=== PATIENT | male | born 1950 | race Caucasian/White ===

== ENCOUNTER 2020-05-07 16:37 | Emergency (ER) | payer MEDICARE ==
[2020-05-07 17:59] VITALS: BP 134/92; PULSE 83
--- NOTE | 2020-05-07 18:15 | EDM.PDOC ---
ED HPI GENERAL MEDICAL PROBLEM - General Chief Complaint: Cardiovascular Problem Stated Complaint: CHEST PAIN Time Seen by Provider: 05/07/20 17:45 Source of Information: Reports: Patient, RN History Limitations: Reports: No Limitations - History of Present Illness INITIAL COMMENTS - FREE TEXT/NARRATIVE: Mr. Michel was referred from the clinic to the ED for left sided chest pain, that radiates down his arm. No jaw pain. No abdominal pain N or V. No SOB. Medical history of Diabetes and increased Cholesterol. He has not taken anything for his chest pain symptoms. He states his pain is worsened by large meals. He had a large dinner last night. Pain scale is 2/10. He appears to be in a good mood and is alert and oriented x3 with no apparent distress. No other symptoms or concerns. Onset: Today (Around noon.) Onset Date: 05/07/20 Onset Time: 12:00 Duration: Hour(s):, Improving Location: Reports: Abdomen (Chest), Upper Extremity, Left Quality: Reports: Ache, Dull Severity: Mild Improves with: Reports: None Worsens with: Reports: Eating Associated Symptoms: Reports: Chest Pain Treatments [employer]ER: Reports: EKG Left Chest Pain Score (Numeric/FACES): 2 - Related Data Allergies Allergy/AdvReac Type Severity Reaction Status Date / Time No Known Allergies Allergy Verified 05/07/20 16:56 Home Meds: Home Meds metFORMIN [Glucophage] 500 mg PO BID 04/19/15 [History] Past Medical History Other HEENT History: glasses Respiratory History: Reports: Other (See Below) Other Respiratory History: chronic cough per pt Other Gastrointestinal History: S/P Ventral Herina Repair Endocrine/Metabolic History: Reports: Diabetes, Type II - Infectious Disease History Infectious Disease History: Reports: Chicken Pox - Past Surgical History Other GI Surgeries/Procedures: hernia repair 2009 Social & Family History - Family History Family Medical History: Noncontributory - Recreational Drug Use Recreational Drug Use: No ED ROS GENERAL - Review of Systems Review Of Systems: See Below Constitutional: Reports: No Symptoms HEENT: Reports: No Symptoms Respiratory: Reports: No Symptoms Cardiovascular: Reports: Chest Pain Endocrine: Reports: High Glucose GI/Abdominal: Reports: Other (mild midline upper abdominal pain) : Reports: No Symptoms Musculoskeletal: Reports: No Symptoms Skin: Reports: No Symptoms Neurological: Reports: No Symptoms Hematologic/Lymphatic: Reports: No Symptoms Immunologic: Reports: No Symptoms ED EXAM, GENERAL - Physical Exam Exam: See Below General Appearance: Alert, No Apparent Distress, Obese Eye Exam: Bilateral Eye: PERRL Ear Exam: Right Ear: Other (Patient says he has intermitient ear pain with sinus drainage. ) Nose: Normal Inspection Throat/Mouth: Normal Lips, Normal Teeth, Normal Oropharynx Head: Atraumatic, Normocephalic Neck: Normal Inspection, Non-Tender Respiratory/Chest: No Respiratory Distress, Lungs Clear, Normal Breath Sounds Cardiovascular: No JVD, No Murmur, No Rub Peripheral Pulses: 2+: Radial (L), Radial (R) GI/Abdominal: Normal Bowel Sounds, Soft, Non-Tender (Male) Exam: Deferred Rectal (Males) Exam: Deferred Extremities: Normal Inspection Neurological: Alert, Oriented, CN II-XII Intact Course - Vital Signs Last Recorded V/S: Last Vital Signs Temp 36.6 C 05/07/20 16:56 Pulse 83 05/07/20 17:58 Resp 20 05/07/20 17:58 BP 134/92 H 05/07/20 17:58 Pulse Ox 97 05/07/20 17:58 - Orders/Labs/Meds Orders: Active Orders 24 hr Category Date Time Status EKG Documentation Completion [RC] ASDIRECTED Care 05/07/20 16:55 Active CXR [Chest 1V Frontal] [CR] Stat Exams 05/07/20 16:56 Taken CORONAVIRUS COVID-19 RAPID [MOLEC] Stat Lab 05/07/20 17:36 Ordered Labs: Laboratory Tests 05/07/20 05/07/20 05/07/20 Range/Units 16:54 16:55 17:18 WBC 8.4 (4.0-11.0) K/uL RBC 4.76 (4.50-6.50) M/uL Hgb 15.5 (13.0-18.0) g/dL Hct 43.0 (40.0-54.0) % MCV 90 (76-96) fL MCH 32.6 H (27.0-32.0) pg MCHC 36.0 H (31.0-35.0) g/dL RDW 12.5 (11.0-16.0) % Plt Count 292 (150-400) K/uL MPV 9.1 (6.0-10.0) fL Neut % (Auto) 55.2 (45.0-70.0) % Lymph % (Auto) 34.2 (20.0-40.0) % Dent % (Auto) 7.8 (3.0-10.0) % Eos % (Auto) 2.4 (1.0-5.0) % Baso % (Auto) 0.4 (0.0-0.5) % Neut # (Auto) 4.66 (2.00-7.50) K/uL Lymph # (Auto) 2.89 (1.50-4.00) K/uL Dent # (Auto) 0.66 (0.20-0.80) K/uL Eos # (Auto) 0.20 (0.04-0.40) K/uL Baso # (Auto) 0.03 (0.02-0.10) K/uL Sodium 140 (136-145) mmol/L Potassium 4.2 (3.5-5.1) mmol/L Chloride 104 (98-107) mmol/L Carbon Dioxide 22.9 (21.0-32.0) mmol/L Anion Gap 17.3 H (5.0-15.0) mmol/L BUN 18 (8-26) mg/dL Creatinine 1.17 (0.70-1.30) mg/dL Est Cr Clr Drug Dosing 63.26 mL/min Estimated GFR (MDRD) > 60 (>60) MLS/MIN BUN/Creatinine Ratio 15.4 (6-25) Glucose 180 H (74-100) mg/dL Calcium 9.2 (8.5-10.1) mg/dL Total Bilirubin 0.3 D (0.0-1.0) mg/dL AST 21 (15-37) U/L ALT 34 (12-78) U/L Alkaline Phosphatase 79 (46-116) U/L Troponin I < 0.017 (0.000-0.060) ng/mL Total Protein 7.7 (6.4-8.2) g/dL Albumin 4.2 (3.4-5.0) g/dL Globulin 3.5 (2.2-4.2) g/dL Albumin/Globulin Ratio 1.2 (0.8-2.0) Amylase (25-115) U/L Lipase 100 (73-393) U/L 05/07/20 Range/Units 17:19 WBC (4.0-11.0) K/uL RBC (4.50-6.50) M/uL Hgb (13.0-18.0) g/dL Hct (40.0-54.0) % MCV (76-96) fL MCH (27.0-32.0) pg MCHC (31.0-35.0) g/dL RDW (11.0-16.0) % Plt Count (150-400) K/uL MPV (6.0-10.0) fL Neut % (Auto) (45.0-70.0) % Lymph % (Auto) (20.0-40.0) % Dent % (Auto) (3.0-10.0) % Eos % (Auto) (1.0-5.0) % Baso % (Auto) (0.0-0.5) % Neut # (Auto) (2.00-7.50) K/uL Lymph # (Auto) (1.50-4.00) K/uL Dent # (Auto) (0.20-0.80) K/uL Eos # (Auto) (0.04-0.40) K/uL Baso # (Auto) (0.02-0.10) K/uL Sodium (136-145) mmol/L Potassium (3.5-5.1) mmol/L Chloride (98-107) mmol/L Carbon Dioxide (21.0-32.0) mmol/L Anion Gap (5.0-15.0) mmol/L BUN (8-26) mg/dL Creatinine (0.70-1.30) mg/dL Est Cr Clr Drug Dosing mL/min Estimated GFR (MDRD) (>60) MLS/MIN BUN/Creatinine Ratio (6-25) Glucose (74-100) mg/dL Calcium (8.5-10.1) mg/dL Total Bilirubin (0.0-1.0) mg/dL AST (15-37) U/L ALT (12-78) U/L Alkaline Phosphatase (46-116) U/L Troponin I (0.000-0.060) ng/mL Total Protein (6.4-8.2) g/dL Albumin (3.4-5.0) g/dL Globulin (2.2-4.2) g/dL Albumin/Globulin Ratio (0.8-2.0) Amylase 33 (25-115) U/L Lipase (73-393) U/L Departure - Departure Time of Disposition: 18:30 Disposition: Home, Self-Care 01 Condition: Good Clinical Impression: Chest pain Qualifiers: Chest pain type: unspecified Qualified Code(s): R07.9 - Chest pain, unspecified Instructions: Nonspecific Chest Pain, Adult Referrals: PCP,None [Primary Care Provider] - Additional Instructions: 1)FU with PCP or ED for new or worsening symptoms. 2)Continue care and management with PCP for Diabetes. Care Plan Goals: Continue all home medications. Sepsis Event Note (ED) - Evaluation Sepsis Screening Result: No Definite Risk - Focused Exam Vital Signs: Vital Signs Temp Pulse Resp BP Pulse Ox 05/07/20 17:58 83 20 134/92 H 97 05/07/20 17:19 118/85 05/07/20 17:04 78 19 129/90 96 05/07/20 16:56 36.6 C 83 18 158/91 H 97 - Problem List & Annotations (1) Diabetes SNOMED Code(s): 98943921 Code(s): E11.9 - TYPE 2 DIABETES MELLITUS WITHOUT COMPLICATIONS Status: Acute Current Visit: No Qualifiers: Diabetes mellitus type: type 2 Diabetes mellitus complication detail: with other circulatory complications (2) Chest pain SNOMED Code(s): 87659281 Code(s): R07.9 - CHEST PAIN, UNSPECIFIED Status: Acute Priority: Low Current Visit: Yes Qualifiers: Chest pain type: unspecified Qualified Code(s): R07.9 - Chest pain, unspecified - My Orders Last 24 Hours: My Active Orders 05/07/20 16:55 EKG Documentation Completion [RC] ASDIRECTED 05/07/20 16:56 CXR [Chest 1V Frontal] [CR] Stat 05/07/20 17:36 CORONAVIRUS COVID-19 RAPID [MOLEC] Stat - Assessment/Plan Last 24 Hours: My Active Orders 05/07/20 16:55 EKG Documentation Completion [RC] ASDIRECTED 05/07/20 16:56 CXR [Chest 1V Frontal] [CR] Stat 05/07/20 17:36 CORONAVIRUS COVID-19 RAPID [MOLEC] Stat
--- NOTE | 2020-05-08 08:17 | CR ---
Date of Service: 05/07/20 Clinical Data: Chest pain. AP CHEST: Comparison is made to a prior exam dated 11/21/15. The heart size is normal. The lungs are clear. No pneumothorax. No pleural effusions. No evidence of acute intrathoracic disease. [id number] [facility]
== END 2020-05-07 18:26 | disposition home or self-care (01) ==
LOC: LB.ED 16:37
DX: R07.9 Chest pain, unspecified (principal); E11.9 Type 2 diabetes mellitus without complications; Z79.84 Long term (current) use of oral hypoglycemic drugs
CPT/HCPCS: 36415; 71045; 80053; 82150; 83690; 84484; 85025; 93005; 99285; U0002; 99283

== ENCOUNTER 2021-03-16 19:39 | Observation (INO) | payer MEDICARE ==
[2021-03-16] MEDS ORDERED: Sodium Chloride 0.9% 10 ML Syringe FLUSH PRN (19:47)
--- NOTE | 2021-03-16 19:55 | EDM.PDOC ---
ED HPI GENERAL MEDICAL PROBLEM - General Chief Complaint: Neuro Symptoms/Deficits Stated Complaint: CONFUSED Time Seen by Provider: 03/16/21 19:40 Source of Information: Reports: Patient History Limitations: Reports: No Limitations - History of Present Illness INITIAL COMMENTS - FREE TEXT/NARRATIVE: patient presented to the ER with a c/o speech problems. started last night and has progressively got worse throughout the day. no weakness or numbness. no vision problems. h/o HTN, DM and dyslipidemia. no h/o stroke in the past. no fever or chills. no CP or SOB. no palpitations. walking fine. Patient reports he was having problems with expressing his words. - Related Data Allergies Allergy/AdvReac Type Severity Reaction Status Date / Time No Known Allergies Allergy Verified 03/16/21 20:17 Home Meds: Home Meds RX: metFORMIN [Glucophage] 500 mg PO BID 04/19/15 [History] RX: Simvastatin 10 mg PO QAM 03/16/21 [History] Past Medical History Other HEENT History: glasses Respiratory History: Reports: Other (See Below) Other Respiratory History: chronic cough per pt Other Gastrointestinal History: S/P Ventral Herina Repair Endocrine/Metabolic History: Reports: Diabetes, Type II - Infectious Disease History Infectious Disease History: Reports: Chicken Pox - Past Surgical History Other GI Surgeries/Procedures: hernia repair 2008 Social & Family History - Family History Family Medical History: No Pertinent Family History ED ROS GENERAL - Review of Systems Review Of Systems: See Below Constitutional: Reports: No Symptoms HEENT: Reports: No Symptoms Respiratory: Reports: No Symptoms Cardiovascular: Reports: No Symptoms GI/Abdominal: Reports: No Symptoms Musculoskeletal: Reports: No Symptoms Skin: Reports: No Symptoms Neurological: Reports: Trouble Speaking Psychiatric: Reports: No Symptoms ED EXAM, NEURO - Physical Exam Exam: See Below Exam Limited By: No Limitations General Appearance: Alert, WD/WN, No Apparent Distress Eye Exam: Bilateral Eye: EOMI, PERRL Head Exam: Atraumatic Respiratory/Chest: No Respiratory Distress Cardiovascular: Normal Peripheral Pulses, Regular Rate, Rhythm GI/Abdominal: Normal Bowel Sounds Neurological: Alert, Normal Mood/Affect, Normal Gait, Normal Reflexes, No Motor/Sensory Deficits, Oriented x 3 Extremities: Normal Inspection, Normal Range of Motion, Non-Tender #1 Interpretation EKG Date: 03/16/21 Rhythm: NSR [place]: Normal P-Wave: Present QRS: Normal ST-T: Normal QT: Normal Comparison: No Change EKG Interpretation Comments: RBBB and left fascicular block - no changes from before Course - Vital Signs Last Recorded V/S: Last Vital Signs Temp 36.4 C 03/16/21 20:28 Pulse 74 03/16/21 21:34 Resp 16 03/16/21 20:28 BP 149/96 H 03/16/21 21:34 Pulse Ox 98 03/16/21 21:34 - Orders/Labs/Meds Orders: Active Orders 24 hr Category Date Time Status Ang Head w Cont [MR] Stat Exams 03/16/21 20:49 Ordered Ang Neck w Cont [MR] Stat Exams 03/16/21 20:49 Ordered Head wo Cont [CT] Stat Exams 03/16/21 19:47 Taken CORONAVIRUS COVID-19 MATTHEW [MOLEC] Routine Lab 03/16/21 20:44 Received CORONAVIRUS COVID-19 RAPID [MOLEC] Routine Lab 03/16/21 20:29 Ordered Sodium Chloride 0.9% [Normal Saline] 1,000 ml Med 03/16/21 21:30 Ordered IV ASDIRECTED Sodium Chloride 0.9% [Saline Flush] Med 03/16/21 19:47 Active 10 ml FLUSH ASDIRECTED PRN Saline Lock Insert [OM.PC] Routine Oth 03/16/21 19:47 Ordered Medication Orders Sodium Chloride (Normal Saline) 1,000 mls @ 999 mls/hr IV ASDIRECTED YULISSA Last Admin: 03/16/21 21:32 Dose: 999 mls/hr Documented by: CONOR Sodium Chloride (Sodium Chloride 0.9% 10 Ml Syringe) 10 ml FLUSH ASDIRECTED PRN PRN Reason: Keep Vein Open Labs: Laboratory Tests 03/16/21 03/16/21 03/16/21 Range/Units 20:01 20:20 20:20 WBC Cancelled 8.8 RBC Cancelled 4.48 L Hgb Cancelled 14.5 Hct Cancelled 40.3 MCV Cancelled 90 MCH Cancelled 32.4 H MCHC Cancelled 36.0 H RDW Cancelled 12.3 Plt Count Cancelled 280 MPV Cancelled 9.2 PT 10.4 (9.0-11.5) sec INR 1.0 (1.0-3.5) Sodium (136-145) mmol/L Potassium (3.5-5.1) mmol/L Chloride (98-107) mmol/L Carbon Dioxide (21.0-32.0) mmol/L Anion Gap (5.0-15.0) mmol/L BUN (8-26) mg/dL Creatinine (0.70-1.30) mg/dL Est Cr Clr Drug Dosing mL/min Estimated GFR (MDRD) (>60) MLS/MIN BUN/Creatinine Ratio (6-25) Glucose (74-100) mg/dL Calcium (8.5-10.1) mg/dL Troponin I (0.000-0.060) ng/mL 03/16/21 Range/Units 20:20 WBC RBC Hgb Hct MCV MCH MCHC RDW Plt Count MPV PT (9.0-11.5) sec INR (1.0-3.5) Sodium 136 (136-145) mmol/L Potassium 4.2 (3.5-5.1) mmol/L Chloride 104 (98-107) mmol/L Carbon Dioxide 20.1 L (21.0-32.0) mmol/L Anion Gap 16.1 H (5.0-15.0) mmol/L BUN 20 (8-26) mg/dL Creatinine 1.12 (0.70-1.30) mg/dL Est Cr Clr Drug Dosing 69.29 mL/min Estimated GFR (MDRD) > 60 (>60) MLS/MIN BUN/Creatinine Ratio 17.9 (6-25) Glucose 226 H (74-100) mg/dL Calcium 9.4 (8.5-10.1) mg/dL Troponin I < 0.017 (0.000-0.060) ng/mL Meds: Medications Generic Name Dose Route Start Last Admin Trade Name Freq PRN Reason Stop Dose Admin Sodium Chloride 1,000 mls @ 999 mls/hr 03/16/21 21:30 03/16/21 21:32 Normal Saline IV 999 mls/hr ASDIRECTED YULISSA Administration Sodium Chloride 10 ml 03/16/21 19:47 Sodium Chloride 0.9% 10 Ml Syringe FLUSH ASDIRECTED PRN Keep Vein Open Discontinued Medications Generic Name Dose Route Start Last Admin Trade Name Freq PRN Reason Stop Dose Admin Clopidogrel Bisulfate 300 mg 03/16/21 20:54 03/16/21 21:16 Clopidogrel 75 Mg Tab PO 03/16/21 20:55 300 mg ONETIME ONE Administration Clopidogrel Bisulfate Confirm 03/16/21 21:19 03/16/21 21:16 Clopidogrel 75 Mg Tab Administered 03/16/21 21:20 Not Given Dose 75 mg .ROUTE .STK-MED ONE Clopidogrel Bisulfate Confirm 03/16/21 21:20 03/16/21 21:16 Clopidogrel 75 Mg Tab Administered 03/16/21 21:21 Not Given Dose 225 mg .ROUTE .STK-MED ONE - Re-Assessments/Exams Free Text/Narrative Re-Assessment/Exam: vitals WNL labs - no leukocytosis or labs abnormalities. 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 contacted stroke neurologist in [place] - no indications for tPA or thrombectomy given outside the window. Recommended Plavix 300mg then 75mg for 21 days. Also resume ASA 81mg po daily then increase to 300mh PO after 21 days. Also recommended MRI or CTA Head and Neck- whatever available - unfortunately - none of those services are available here - and [facility] unable to accept the patient - given no bed availability - also contacted [facility] - no bed available. But recommended to admit the patient overnight for observation and try again tomorrow since they will have some discharges. Discussed the findings with the patient, his sister and his daughter - who are all in agree with the plan. Patient remained stable - he actually improved slightly compared to before, but still have some troubles findings some words. Departure - Departure Time of Disposition: 21:52 Disposition: Refer to Observation Condition: Fair Clinical Impression: Broca's aphasia Cerebrovascular accident (CVA) Qualifiers: CVA mechanism: unspecified Qualified Code(s): I63.9 - Cerebral infarction, unspecified - Discharge Information *PRESCRIPTION DRUG MONITORING PROGRAM REVIEWED*: Not Applicable *COPY OF PRESCRIPTION DRUG MONITORING REPORT IN PATIENT DONNELL: Not Applicable Instructions: Transient Ischemic Attack, [id number] Referrals: PCP,None [Primary Care Provider] - Forms: ED Department Discharge Sepsis Event Note (ED) - Focused Exam Vital Signs: Vital Signs Temp Pulse Resp BP Pulse Ox 03/16/21 21:34 74 149/96 H 98 03/16/21 20:28 36.4 C 76 16 156/94 H 98 03/16/21 20:20 131/75 98 - Problem List & Annotations (1) Broca's aphasia SNOMED Code(s): 293448577 Code(s): R47.01 - APHASIA Status: Acute Priority: Medium Current Visit: Yes (2) Cerebrovascular accident (CVA) SNOMED Code(s): 201358108 Code(s): I63.9 - CEREBRAL INFARCTION, UNSPECIFIED Status: Acute Priority: Medium Current Visit: Yes Qualifiers: CVA mechanism: unspecified Qualified Code(s): I63.9 - Cerebral infarction, unspecified - Problem List Review Problem List Initiated/Reviewed/Updated: Yes - My Orders Last 24 Hours: My Active Orders 03/16/21 19:47 Head wo Cont [CT] Stat Sodium Chloride 0.9% [Saline Flush] 10 ml FLUSH ASDIRECTED PRN Saline Lock Insert [OM.PC] Routine 03/16/21 20:29 CORONAVIRUS COVID-19 RAPID [MOLEC] Routine 03/16/21 20:44 CORONAVIRUS COVID-19 MATTHEW [MOLEC] Routine 03/16/21 20:49 Ang Head w Cont [MR] Stat Ang Neck w Cont [MR] Stat 03/16/21 21:30 Sodium Chloride 0.9% [Normal Saline] 1,000 ml IV ASDIRECTED - Assessment/Plan Last 24 Hours: My Active Orders 03/16/21 19:47 Head wo Cont [CT] Stat Sodium Chloride 0.9% [Saline Flush] 10 ml FLUSH ASDIRECTED PRN Saline Lock Insert [OM.PC] Routine 03/16/21 20:29 CORONAVIRUS COVID-19 RAPID [MOLEC] Routine 03/16/21 20:44 CORONAVIRUS COVID-19 MATTHEW [MOLEC] Routine 03/16/21 20:49 Ang Head w Cont [MR] Stat Ang Neck w Cont [MR] Stat 03/16/21 21:30 Sodium Chloride 0.9% [Normal Saline] 1,000 ml IV ASDIRECTED Plan: - resume home meds - Plavix 300mg today then 75mg daily for 21 days. - ASA 81mg - simvastatin - Tele bed - heart healthy diet - ECHO as outpatient - MRI and CT angio - not available but will arrange for OSH facility
[2021-03-16] MEDS ORDERED: Clopidogrel 75 MG Tab PO ONE (20:54)
[2021-03-16] MEDS ORDERED: Clopidogrel 75 MG Tab ONE ×2 (21:19→21:20)
[2021-03-16] MEDS ORDERED: Sodium Chloride 0.9% 1,000 ML IV SCH (21:30)
[2021-03-17] MEDS ORDERED: metFORMIN 500 MG Tab PO SCH ×2 (08:00→20:00)
--- NOTE | 2021-03-17 08:42 | CT ---
Date of Service: 03/16/21 Clinical Data: speech problem - expressive aphasia UNENHANCED BRAIN CT: Multislice acquisition through the brain without IV contrast was performed. Comparison is made to a prior exam dated 11/21/15. There is a small area of encephalomalacia in the right parietal region consistent with a prior infarct. There is also a focal lucency in the left thalamus consistent with an old lacunar infarct. No masses. No intracranial hemorrhage. No evidence of acute or subacute infarct. No osseous abnormalities. IMPRESSION: No acute intracranial abnormalities. [id number] [facility]
[2021-03-17] MEDS: Aspirin 81 MG Tab.Chew PO SCH (08:55)
[2021-03-17] MEDS: Clopidogrel 75 MG Tab PO SCH (08:56)
[2021-03-17] MEDS ORDERED: metFORMIN 500 MG Tab PO ONE (11:43)
[2021-03-17] MEDS ORDERED: Iopamidol 755 Mg/ML 100 ML Bottle IV PRN (13:16)
[2021-03-17] MEDS ORDERED: Sodium Chloride 0.9% 50 ML SDV FLUSH SCH (13:30)
[2021-03-17] MEDS ORDERED: glipiZIDE 5 MG Tab ONE (18:18)
[2021-03-17] MEDS: metFORMIN 500 MG Tab PO SCH (18:22)
[2021-03-17] MEDS: glipiZIDE 5 MG Tab PO SCH (18:23)
--- NOTE | 2021-03-17 18:33 | CT ---
DATE OF SERVICE: 03/17/21 CLINICAL DATA: DYSARTHRIA NECK CTA: Routine protocol with IV contrast was performed. Multiplanar images are reviewed. LEFT CAROTID SYSTEM: There is atherosclerotic plaquing in the carotid bulb and proximal ICA. No significant stenosis or vessel occlusion. LEFT CAROTID SYSTEM: There is calcified plaque in the carotid bulb and proximal ECA. No significant stenosis or vessel occlusion. VERTEBRAL SYSTEM: Left vertebral is dominant. No significant stenosis or vessel occlusion. [id number] [facility]
--- NOTE | 2021-03-17 18:36 | CT ---
DATE OF SERVICE: 03/17/21 CLINICAL DATA: dysarthria HEAD CTA: Routine protocol with IV contrast was performed. Multiplanar images are reviewed. INTRACRANIAL ICA'S: No significant stenosis or vessel occlusion. ANTERIOR CEREBRAL ARTERIES: No significant stenosis or vessel occlusion. No aneurysm. MIDDLE CEREBRAL ARTERIES: No significant stenosis or vessel occlusion. No aneurysm. POSTERIOR CEREBRAL ARTERIES: No significant stenosis or vessel occlusion. No aneurysm. BASILAR ARTERY: No significant stenosis or vessel occlusion. No aneurysm. [id number] [facility]
--- NOTE | 2021-03-17 18:54 | PCM.HP.2 ---
H&P History of Present Illness - General Date of Service: 03/17/21 Admit Problem/Dx: Admission Diagnosis/Problem Admission Diagnosis/Problem CVA, Cerebrovascular accident Source of Information: Patient History Limitations: Reports: No Limitations - History of Present Illness Initial Comments - Free Text/Narative: patient was admitted to the floor from the ER due to concerns for a stroke. He presented to the ER yesterday with a 24 hr onset of speech problems - difficulty speaking. No weakness or numbness. no facial droop. no problems with walking, or dizziness. 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 No acute stroke or bleeding. Consulted with neurology at [facility] ( [facility] ) - no bed is available - couldn't accept the patient - but the neurologist recommended to admit the patient to the floor for monitoring and to start plavix. Also to perform further stroke workup. h/o T2DM, obesity and HTN. Also h/o dyslipidemia. Patient lives home alone - most family is out of town. In the ER, he received plavix 300mg. Already on ASA 81mg. - Related Data Allergies/Adverse Reactions: Allergies Allergy/AdvReac Type Severity Reaction Status Date / Time No Known Allergies Allergy Verified 03/16/21 20:17 Home Medications: Home Meds metFORMIN [Glucophage] 1,000 mg PO BID 04/19/15 [History] Simvastatin 10 mg PO QAM 03/16/21 [History] Past Medical History HEENT History: Reports: Impaired Vision Other HEENT History: glasses Cardiovascular History: Reports: High Cholesterol Respiratory History: Reports: Other (See Below) Other Respiratory History: chronic cough per pt Gastrointestinal History: Reports: Other (See Below) Other Gastrointestinal History: S/P Ventral Herina Repair Endocrine/Metabolic History: Reports: Diabetes, Type II - Infectious Disease History Infectious Disease History: Reports: Chicken Pox - Past Surgical History GI Surgical History: Reports: Other (See Below) Other GI Surgeries/Procedures: hernia repair 2008 Social & Family History - Family History Family Medical History: No Pertinent Family History - Tobacco Use Tobacco Use Status *Q: Never Tobacco User H&P Review of Systems - Review of Systems: Review Of Systems: See Below General: Reports: No Symptoms HEENT: Reports: No Symptoms Pulmonary: Reports: No Symptoms Cardiovascular: Reports: No Symptoms Gastrointestinal: Reports: No Symptoms Neurological: Reports: No Symptoms Exam - Exam Exam: See Below - Vital Signs Vital Signs: Last Vital Signs Temp 36.7 C 03/17/21 12:00 Pulse 69 03/17/21 12:00 Resp 15 03/17/21 12:00 BP 130/86 03/17/21 12:00 Pulse Ox 99 03/17/21 12:00 Weight: 117.8 kg - Exam General: Alert, Oriented, Cooperative HEENT: PERRLA, Conjunctiva Clear, EOMI Lungs: Clear to Auscultation Cardiovascular: Regular Rate, Regular Rhythm GI/Abdominal Exam: Normal Bowel Sounds, Soft, Non-Tender Back Exam: Full Range of Motion Extremities: Normal Inspection, Normal Range of Motion Neurological: Cranial Nerves Intact, Reflexes Equal Bilateral, Strength Equal Bilateral, Normal Gait, Normal Speech (except for missing few words and sporadic words rumbling), Sensation Intact. No: Focal Deficit Neuro Extensive - Mental Status: Alert, Oriented x3, Normal Mood/Affect, Normal Cognition, Memory Intact Neuro Extensive - Motor, Sensory, Reflexes: Normal Gait Psychiatric: Alert, Normal Affect, Normal Mood - Patient Data Lab Results Last 24 hrs: Laboratory Results - last 24 hr 03/16/21 03/16/21 03/16/21 Range/Units 20:01 20:20 20:20 WBC Cancelled 8.8 RBC Cancelled 4.48 L Hgb Cancelled 14.5 Hct Cancelled 40.3 MCV Cancelled 90 MCH Cancelled 32.4 H MCHC Cancelled 36.0 H RDW Cancelled 12.3 Plt Count Cancelled 280 MPV Cancelled 9.2 PT 10.4 (9.0-11.5) sec INR 1.0 (1.0-3.5) Sodium (136-145) mmol/L Potassium (3.5-5.1) mmol/L Chloride (98-107) mmol/L Carbon Dioxide (21.0-32.0) mmol/L Anion Gap (5.0-15.0) mmol/L BUN (8-26) mg/dL Creatinine (0.70-1.30) mg/dL Est Cr Clr Drug Dosing mL/min Estimated GFR (MDRD) (>60) MLS/MIN BUN/Creatinine Ratio (6-25) Glucose (74-100) mg/dL POC Glucose (74-110) mg/dL Calcium (8.5-10.1) mg/dL Troponin I (0.000-0.060) ng/mL SARS-CoV-2 RNA (MATTHEW) (NEGATIVE) 03/16/21 03/16/21 03/17/21 Range/Units 20:20 20:44 18:42 WBC RBC Hgb Hct MCV MCH MCHC RDW Plt Count MPV PT (9.0-11.5) sec INR (1.0-3.5) Sodium 136 (136-145) mmol/L Potassium 4.2 (3.5-5.1) mmol/L Chloride 104 (98-107) mmol/L Carbon Dioxide 20.1 L (21.0-32.0) mmol/L Anion Gap 16.1 H (5.0-15.0) mmol/L BUN 20 (8-26) mg/dL Creatinine 1.12 (0.70-1.30) mg/dL Est Cr Clr Drug Dosing 69.29 mL/min Estimated GFR (MDRD) > 60 (>60) MLS/MIN BUN/Creatinine Ratio 17.9 (6-25) Glucose 226 H (74-100) mg/dL POC Glucose 261 H (74-110) mg/dL Calcium 9.4 (8.5-10.1) mg/dL Troponin I < 0.017 (0.000-0.060) ng/mL SARS-CoV-2 RNA (MATTHEW) Negative (NEGATIVE) Result Diagrams: 03/16/21 20:20 03/16/21 20:20 Sepsis Event Note - Focused Exam Vital Signs: Vital Signs Temp Pulse Resp BP Pulse Ox 03/17/21 12:00 36.7 C 69 15 130/86 99 03/17/21 08:00 36.6 C 67 15 137/85 100 - Problem List (1) Broca's aphasia SNOMED Code(s): 541721560 ICD Code: R47.01 - APHASIA Status: Acute Priority: Medium Current Visit: Yes (2) Cerebrovascular accident (CVA) SNOMED Code(s): 337348778 ICD Code: I63.9 - CEREBRAL INFARCTION, UNSPECIFIED Status: Acute Priority: Medium Current Visit: Yes Qualifiers: CVA mechanism: unspecified Qualified Code(s): I63.9 - Cerebral infarction, unspecified Problem List Initiated/Reviewed/Updated: Yes Orders Last 24hrs: Active Orders 24 hr Category Date Time Status Patient Status [ADT] Routine ADT 03/16/21 22:06 Active EKG Documentation Completion [RC] ASDIRECTED Care 03/17/21 16:05 Active Oxygen Therapy [RC] PRN Care 03/16/21 22:06 Active Vital Signs [RC] Q4H Care 03/16/21 22:06 Active CORONAVIRUS COVID-19 RAPID [MOLEC] Routine Lab 03/16/21 20:43 Ordered CULTURE MRSA SURVEY [] Routine Lab 03/17/21 04:51 Received Aspirin Med 03/17/21 08:00 Active 81 mg PO DAILY Clopidogrel [Plavix] Med 03/17/21 08:00 Active 75 mg PO DAILY Iopamidol [Isovue-370 (76%)] Med 03/17/21 13:16 Active 100 ml IV . DIRECTED PRN Simvastatin [Zocor] Med 03/17/21 20:00 Active 40 mg PO BEDTIME Sodium Chloride 0.9% [Normal Saline] Med 03/17/21 13:30 Active 50 ml FLUSH ONETIME Sodium Chloride 0.9% [Normal Saline] 1,000 ml Med 03/16/21 21:30 Active IV ASDIRECTED Sodium Chloride 0.9% [Saline Flush] Med 03/16/21 19:47 Active 10 ml FLUSH ASDIRECTED PRN glipiZIDE [Glucotrol] Med 03/17/21 18:15 Active 10 mg PO BIDMEALS metFORMIN [Glucophage] Med 03/17/21 18:15 Active 1,000 mg PO BIDMEALS Saline Lock Insert [OM.PC] Routine Oth 03/16/21 19:47 Ordered Medication Orders Aspirin (Aspirin 81 Mg Tab.Chew) 81 mg PO DAILY [facility] Last Admin: 03/17/21 08:55 Dose: 81 mg Documented by: KYA Clopidogrel Bisulfate (Clopidogrel 75 Mg Tab) 75 mg PO DAILY [facility] Last Admin: 03/17/21 08:56 Dose: 75 mg Documented by: KYA Glipizide (Glipizide 5 Mg Tab) 10 mg PO BIDMEALS [facility] Last Admin: 03/17/21 18:23 Dose: 10 mg Documented by: SHANTELLEMAMY Sodium Chloride (Normal Saline) 1,000 mls @ 999 mls/hr IV ASDIRECTED [facility] Last Admin: 03/16/21 21:32 Dose: 999 mls/hr Documented by: CONOR Iopamidol (Iopamidol 755 Mg/Ml 100 Ml Bottle) 100 ml IV . DIRECTED PRN PRN Reason: RADIOLOGY EXAM Stop: 03/18/21 13:17 Last Admin: 03/17/21 13:44 Dose: 100 ml Documented by: MIAHCailin Metformin HCl (Metformin 500 Mg Tab) 1,000 mg PO BIDMEALS [facility] Last Admin: 03/17/21 18:22 Dose: 1,000 mg Documented by: RIC Simvastatin (Simvastatin 40 Mg Tab) 40 mg PO BEDTIME [facility] Sodium Chloride (Sodium Chloride 0.9% 10 Ml Syringe) 10 ml FLUSH ASDIRECTED PRN PRN Reason: Keep Vein Open Sodium Chloride (Sodium Chloride 0.9% 50 Ml Sdv) 50 ml FLUSH ONETIME [facility] Last Admin: 03/17/21 13:44 Dose: 50 ml Documented by: MIAHCailin Assessment/Plan Comment:: - possible CVA vs TIA: significantly improved compared to yesterday but not back to normal yet. Continue plavix 75mg daily and ASA 81mg. - Will obtain a CT angio head and neck today - frequent neuro check - T2DM - resume home Meds today - continue simvastatin - meanwhile, will wait to hear back from [facility] regarding bed availability - patient still needs to have ECHO, carotids US and possibly MRI head+neck w contrast. - Mortality Measure Prognosis:: Good
[2021-03-17] MEDS ORDERED: Simvastatin 40 MG Tab PO SCH (20:00)
[2021-03-18 04:00] VITALS: PULSE 61
[2021-03-18] MEDS: glipiZIDE 5 MG Tab PO SCH (07:34)
[2021-03-18] MEDS: Aspirin 81 MG Tab.Chew PO SCH (07:34)
[2021-03-18] MEDS: metFORMIN 500 MG Tab PO SCH (07:35)
[2021-03-18] MEDS: Clopidogrel 75 MG Tab PO SCH (07:36)
[2021-03-18 07:45] VITALS: BP 142/98
--- NOTE | 2021-03-18 09:52 | PCM.DCSUM1 ---
Discharge Summary - Hospital Course Brief History: patient was admitted to the floor from the ER on 03/16 due to concerns for a stroke. He presented to the ER yesterday with a 24 hr onset of speech problems - difficulty speaking/finding some words. No weakness or numbness. no facial droop. no problems with walking, or dizziness. 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 No acute stroke or bleeding. Consulted with neurology at [facility] ( [facility] ) - no bed is available - couldn't accept the patient - but the neurologist recommended to admit the patient to the floor for monitoring and to start plavix. Also to perform further stroke workup. h/o T2DM, obesity and HTN. Also h/o dyslipidemia. Diagnosis: Stroke: Yes Modified Jp Scale: No Signif.Disability Despite Sympt.Able to Carry Out Usual Act./Duties () Modified Jp Scale Score: 1 - Discharge Data Discharge Date: 03/18/21 Discharge Disposition: Home, Self-Care 01 Condition: Fair - Referral to Home Health Primary Care Physician: PCP None - Discharge Diagnosis/Problem(s) (1) Broca's aphasia SNOMED Code(s): 716758297 ICD Code: R47.01 - APHASIA Status: Acute Priority: Medium Current Visit: Yes (2) Cerebrovascular accident (CVA) SNOMED Code(s): 599965453 ICD Code: I63.9 - CEREBRAL INFARCTION, UNSPECIFIED Status: Acute Priority: Medium Current Visit: Yes Qualifiers: CVA mechanism: unspecified Qualified Code(s): I63.9 - Cerebral infarction, unspecified - Patient Summary/Data Hospital Course: patient was placed in observation on tele. was started on plavix 300mg on day1 then 75mg daily. Also ASA 81mg daily and high dose simvastatin. CT angio H n N were ordered based on neurology recommendations - this showed mild narrowing in carotids but didn't shows any severe obstruction or a clot. Patient speech status has cleared up while in house. No more neuro deficit. Ambulating without problems. Tolerating PO intake. 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) - Discharge Plan *PRESCRIPTION DRUG MONITORING PROGRAM REVIEWED*: Not Applicable *COPY OF PRESCRIPTION DRUG MONITORING REPORT IN PATIENT DONNELL: Not Applicable Home Medications: Home Meds metFORMIN [Glucophage] 1,000 mg PO BID 04/19/15 [History] Simvastatin 10 mg PO QAM 03/16/21 [History] Patient Handouts: Transient Ischemic Attack, [id number] Forms: ED Department Discharge Referrals: PCP,None [Primary Care Provider] - - Discharge Summary/Plan Comment DC Time >30 min.: Yes Total # of Minutes for Discharge Time: 35 Discharge Summary/Plan Comment: - will plan on MRI head and Neck w contrast as outpatient - also might needs an ECHO heart and US carotids as an outpatient - but will leave this to his PCP discretion for how and when. 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 - Patient Data Vitals - Most Recent: Last Vital Signs Temp 36.4 C 03/18/21 07:41 Pulse 61 03/18/21 07:41 Resp 15 03/18/21 07:41 BP 142/98 H 03/18/21 07:41 Pulse Ox 100 03/18/21 07:41 Weight - Most Recent: 117.8 kg I&O - Last 24 hours: Intake & Output 03/17/21 03/18/21 03/18/21 22:59 06:59 14:59 Intake Total 150 Balance 150 Lab Results - Last 24 hrs: Laboratory Results - last 24 hr 03/17/21 03/18/21 Range/Units 18:42 07:24 POC Glucose 261 H 224 H (74-110) mg/dL Med Orders - Current: Current Medications Aspirin (Aspirin 81 Mg Tab.Chew) 81 mg PO DAILY [facility] Last Admin: 03/18/21 07:34 Dose: 81 mg Documented by: Clopidogrel Bisulfate (Clopidogrel 75 Mg Tab) 75 mg PO DAILY [facility] Last Admin: 03/18/21 07:36 Dose: 75 mg Documented by: Glipizide (Glipizide 5 Mg Tab) 10 mg PO BIDMEALS [facility] Last Admin: 03/18/21 07:34 Dose: 10 mg Documented by: Sodium Chloride (Normal Saline) 1,000 mls @ 999 mls/hr IV ASDIRECTED [facility] Last Admin: 03/16/21 21:32 Dose: 999 mls/hr Documented by: Iopamidol (Iopamidol 755 Mg/Ml 100 Ml Bottle) 100 ml IV . DIRECTED PRN PRN Reason: RADIOLOGY EXAM Stop: 03/18/21 13:17 Last Admin: 03/17/21 13:44 Dose: 100 ml Documented by: Metformin HCl (Metformin 500 Mg Tab) 1,000 mg PO BIDMEALS [facility] Last Admin: 03/18/21 07:35 Dose: 1,000 mg Documented by: Simvastatin (Simvastatin 40 Mg Tab) 40 mg PO BEDTIME [facility] Last Admin: 03/17/21 21:45 Dose: 40 mg Documented by: Sodium Chloride (Sodium Chloride 0.9% 10 Ml Syringe) 10 ml FLUSH ASDIRECTED PRN PRN Reason: Keep Vein Open Sodium Chloride (Sodium Chloride 0.9% 50 Ml Sdv) 50 ml FLUSH ONETIME [facility] Last Admin: 03/17/21 13:44 Dose: 50 ml Documented by: Discontinued Medications Clopidogrel Bisulfate (Clopidogrel 75 Mg Tab) 300 mg PO ONETIME ONE Stop: 03/16/21 20:55 Last Admin: 03/16/21 21:16 Dose: 300 mg Documented by: Clopidogrel Bisulfate (Clopidogrel 75 Mg Tab) Confirm Administered Dose 75 mg .ROUTE .STK-MED ONE Stop: 03/16/21 21:20 Last Admin: 03/16/21 21:16 Dose: Not Given Documented by: Clopidogrel Bisulfate (Clopidogrel 75 Mg Tab) Confirm Administered Dose 225 mg .ROUTE .STK-MED ONE Stop: 03/16/21 21:21 Last Admin: 03/16/21 21:16 Dose: Not Given Documented by: Glipizide (Glipizide 5 Mg Tab) Confirm Administered Dose 10 mg .ROUTE .STK-MED ONE Stop: 03/17/21 18:19 Last Admin: 03/17/21 18:24 Dose: Not Given Documented by: Metformin HCl (Metformin 500 Mg Tab) 500 mg PO BID [facility] Last Admin: 03/17/21 08:56 Dose: 500 mg Documented by: Metformin HCl (Metformin 500 Mg Tab) 1,000 mg PO BID [facility] Metformin HCl (Metformin 500 Mg Tab) 500 mg PO ONETIME ONE Stop: 03/17/21 11:44 Last Admin: 03/17/21 11:45 Dose: 500 mg Documented by:
== END 2021-03-18 12:45 | disposition home or self-care (01) ==
LOC: LB.ED 19:39 → LB.MS 22:00
PROVIDERS: ADMIT Surgery; ATTEND Surgery
DX: I63.9 Cerebral infarction, unspecified (principal); R47.01 Aphasia; E11.9 Type 2 diabetes mellitus without complications; I10 Essential (primary) hypertension; E66.9 Obesity, unspecified; E78.00 Pure hypercholesterolemia, unspecified; Z20.822 Contact with and (suspected) exposure to COVID-19; Z79.84 Long term (current) use of oral hypoglycemic drugs; Z79.899 Other long term (current) drug therapy
CPT/HCPCS: 36415; 70450; 70460; 70491; 70496; 70498; 80048; 82947; 84484; 85027; 85610; 93005; 99285-25; A9270-GY; G0378; J7030; Q9967; U0002

== ENCOUNTER 2023-06-22 11:55 | Emergency (ER) | payer MEDICARE ==
[2023-06-22 12:52] LABS: BASOPHILS ABSOLUTE AUTO 0.03 K/uL (0.02-0.10); BASOPHILS PERCENT AUTO 0.4 % (0.0-0.5); EOSINOPHILS ABSOLUTE AUTO 0.14 K/uL (0.04-0.40); EOSINOPHILS PERCENT AUTO 1.9 % (1.0-5.0); HEMATOCRIT 42.5 % (40.0-54.0); HEMOGLOBIN 15.1 g/dL (13.0-18.0); LYMPHOCYTES ABSOLUTE AUTO 2.32 K/uL (1.50-4.00); LYMPHOCYTES PERCENT AUTO 31.7 % (20.0-40.0); MEAN CORPUSCULAR HEMOGLOBIN 31.7 pg (27.0-32.0); MEAN CORPUSCULAR HGB CONC 35.5 g/dL (31.0-35.0); MEAN CORPUSCULAR VOLUME 89 fL (76-96); MEAN PLATELET VOLUME 8.9 fL (6.0-10.0); MONOCYTES ABSOLUTE AUTO 0.59 K/uL (0.20-0.80); MONOCYTES PERCENT AUTO 8.1 % (3.0-10.0); NEUTROPHILS ABSOLUTE AUTO 4.23 K/uL (2.00-7.50); NEUTROPHILS PERCENT AUTO 57.9 % (45.0-70.0); PLATELET COUNT,PLT 272 K/uL (150-400); RED BLOOD CELL COUNT 4.77 M/uL (4.50-6.50); RED CELL DISTRIBUTION WIDTH 12.4 % (11.0-16.0); WHITE BLOOD CELL COUNT,WBC 7.3 K/uL (4.0-11.0)
[2023-06-22 13:13] LABS: A/G RATIO 1.1 (0.8-2.0); ALBUMIN 3.8 g/dL (3.4-5.0); ANION GAP 15.1 mmol/L (5.0-15.0); BILIRUBIN TOTAL 0.7 mg/dL (0.0-1.0); CALCIUM 9.5 mg/dL (8.5-10.1); CARBON DIOXIDE,CO2 25.6 mmol/L (21.0-32.0); CREATININE 1.08 mg/dL (0.70-1.30); EST CRCL DRUG DOSING (CG) 65.72 mL/min; POTASSIUM,K 4.7 mmol/L (3.5-5.1); PROTEIN TOTAL,TP 7.3 g/dL (6.4-8.2)
[2023-06-22 13:21] LABS: APPEARANCE,URINE CLEAR (CLEAR); BILIRUBIN,URINE NEGATIVE (NEGATIVE); COLOR,URINE YELLOW; GLUCOSE,URINE NEGATIVE (NEGATIVE); KETONES,URINE NEGATIVE (NEGATIVE); LEUKOCYTE ESTERASE,URINE NEGATIVE (NEGATIVE); NITRITE,URINE NEGATIVE (NEGATIVE); OCCULT BLOOD,URINE NEGATIVE (NEGATIVE); PROTEIN,URINE 100 mg/dL (NEGATIVE)
[2023-06-22 13:30] LABS: RBC,URINE 0-5 /HPF
[2023-06-22 13:31] LABS: SQUAMOUS EPITHELIAL CELLS,UR OCCASIONAL /HPF; WBC,URINE 0-5 /HPF
[2023-06-22 14:57] VITALS: BP 154/98; PULSE 90
== END 2023-06-22 14:14 | disposition home or self-care (01) ==
LOC: LB.ED 11:55
DX: E11.9 Type 2 diabetes mellitus without complications (principal); Z86.73 Personal history of transient ischemic attack (TIA), and cerebral infarction without residual deficits
CPT/HCPCS: 36415; 70450; 80053; 81001; 85025; 99284

== ENCOUNTER 2024-02-28 11:36 | Emergency (ER) | payer MEDICARE ==
[2024-02-28] MEDS ORDERED: Sodium Chloride 0.9% 10 ML Syringe FLUSH PRN (12:11)
[2024-02-28 12:23] LABS: BASOPHILS ABSOLUTE AUTO 0.03 K/uL (0.02-0.10); BASOPHILS PERCENT AUTO 0.4 % (0.0-0.5); EOSINOPHILS ABSOLUTE AUTO 0.11 K/uL (0.04-0.40); EOSINOPHILS PERCENT AUTO 1.3 % (1.0-5.0); HEMATOCRIT 42.1 % (40.0-54.0); LYMPHOCYTES ABSOLUTE AUTO 2.16 K/uL (1.50-4.00); LYMPHOCYTES PERCENT AUTO 26.1 % (20.0-40.0); MEAN CORPUSCULAR HEMOGLOBIN 31.8 pg (27.0-32.0); MEAN CORPUSCULAR HGB CONC 35.6 g/dL (31.0-35.0); MEAN CORPUSCULAR VOLUME 89 fL (76-96); MEAN PLATELET VOLUME 9.2 fL (6.0-10.0); MONOCYTES ABSOLUTE AUTO 0.51 K/uL (0.20-0.80); MONOCYTES PERCENT AUTO 6.2 % (3.0-10.0); NEUTROPHILS ABSOLUTE AUTO 5.48 K/uL (2.00-7.50); PLATELET COUNT,PLT 301 K/uL (150-400); RED BLOOD CELL COUNT 4.71 M/uL (4.50-6.50); RED CELL DISTRIBUTION WIDTH 12.4 % (11.0-16.0); WHITE BLOOD CELL COUNT,WBC 8.3 K/uL (4.0-11.0)
[2024-02-28 12:42] LABS: INR 1.1 (1.0-3.5); PTT,PARTIAL THROMBOPLSTIN TIME 22.5 SECONDS (24.4-33.2)
[2024-02-28 12:46] LABS: A/G RATIO 1.1 (0.8-2.0); ALBUMIN 3.8 g/dL (3.4-5.0); BILIRUBIN TOTAL 0.5 mg/dL (0.0-1.0); BUN/CREATININE RATIO 13.2 (6-25); CARBON DIOXIDE,CO2 22.6 mmol/L (21.0-32.0); CREATININE 1.29 mg/dL (0.70-1.30); EST CRCL DRUG DOSING (CG) 54.23 mL/min; POTASSIUM,K 3.6 mmol/L (3.5-5.1); PROTEIN TOTAL,TP 7.3 g/dL (6.4-8.2); TROPONIN I HIGH SENSITIVITY 60.2 pg/ml (<=60.4)
[2024-02-28] MEDS: Sodium Chloride 0.9% 1,000 ML IV ONE (15:00)
[2024-02-28 22:46] VITALS: BP 150/104; PULSE 82
[2024-02-28] MEDS: Sodium Chloride 0.9% 500 ML IV ONE (22:57)
== END 2024-02-28 15:20 | disposition home or self-care (01) ==
LOC: LB.ED 11:36
DX: G45.9 Transient cerebral ischemic attack, unspecified (principal); E86.0 Dehydration; E78.00 Pure hypercholesterolemia, unspecified; E11.9 Type 2 diabetes mellitus without complications; Z79.899 Other long term (current) drug therapy; Z79.84 Long term (current) use of oral hypoglycemic drugs; Z88.8 Allergy status to other drugs, medicaments and biological substances
CPT/HCPCS: 36415; 70450; 80053; 82947; 84484; 85025; 85610; 85730; 93005; 96360; 96361; 99285; J7030

== ENCOUNTER 2024-12-03 14:40 | Emergency (ER) | payer MEDICARE ==
[2024-12-03 15:14] LABS: BASOPHILS ABSOLUTE AUTO 0.04 K/uL (0.02-0.10); BASOPHILS PERCENT AUTO 0.5 % (0.0-0.5); EOSINOPHILS PERCENT AUTO 2.3 % (1.0-5.0); HEMATOCRIT 42.5 % (40.0-54.0); HEMOGLOBIN 15.3 g/dL (13.0-18.0); LYMPHOCYTES ABSOLUTE AUTO 2.38 K/uL (1.50-4.00); LYMPHOCYTES PERCENT AUTO 27.4 % (20.0-40.0); MEAN CORPUSCULAR HEMOGLOBIN 32.1 pg (27.0-32.0); MEAN CORPUSCULAR VOLUME 89 fL (76-96); MONOCYTES PERCENT AUTO 9.2 % (3.0-10.0); NEUTROPHILS ABSOLUTE AUTO 5.28 K/uL (2.00-7.50); NEUTROPHILS PERCENT AUTO 60.6 % (45.0-70.0); PLATELET COUNT,PLT 321 K/uL (150-400); RED BLOOD CELL COUNT 4.77 M/uL (4.50-6.50); RED CELL DISTRIBUTION WIDTH 12.6 % (11.0-16.0); WHITE BLOOD CELL COUNT,WBC 8.7 K/uL (4.0-11.0)
[2024-12-03 15:29] LABS: A/G RATIO 1.3 (0.8-2.0); ALBUMIN 4.3 g/dL (3.4-5.0); BILIRUBIN TOTAL 0.8 mg/dL (0.0-1.0); BUN/CREATININE RATIO 18.5 (6-25); CALCIUM 9.4 mg/dL (8.5-10.1); CARBON DIOXIDE,CO2 22.9 mmol/L (21.0-32.0); CREATININE 1.3 mg/dL (0.70-1.30); EST CRCL DRUG DOSING (CG) 58.9 mL/min; POTASSIUM,K 3.9 mmol/L (3.5-5.1); PROTEIN TOTAL,TP 7.5 g/dL (6.4-8.2)
[2024-12-03] MEDS: Sodium Chloride 0.9% 500 ML IV ONE (15:42)
[2024-12-03] MEDS: Sodium Chloride 0.9% 50 ML SDV FLUSH ONE (15:56)
[2024-12-03] MEDS: Iopamidol 755 Mg/ML 100 ML Bottle IV SCH (15:56)
[2024-12-03 16:46] LABS: APPEARANCE,URINE CLEAR (CLEAR); BILIRUBIN,URINE NEGATIVE (NEGATIVE); COLOR,URINE YELLOW; GLUCOSE,URINE NEGATIVE (NEGATIVE); KETONES,URINE 15 mg/dL (NEGATIVE); LEUKOCYTE ESTERASE,URINE NEGATIVE (NEGATIVE); NITRITE,URINE NEGATIVE (NEGATIVE); OCCULT BLOOD,URINE NEGATIVE (NEGATIVE); PROTEIN,URINE NEGATIVE (NEGATIVE)
[2024-12-03] MEDS: Ondansetron 4 MG/2 ML SDV IVPUSH ONE (18:06)
[2024-12-03] MEDS: Ondansetron 4 MG/2 ML SDV ONE (19:05)
[2024-12-03] MEDS: glipiZIDE 5 MG Tab.ER PO SCH (19:15)
[2024-12-03] MEDS: metFORMIN 1,000 MG Tab PO ONE ×2 (19:16→19:18)
[2024-12-03] MEDS: glipiZIDE 5 MG Tab PO ONE (19:18)
[2024-12-03 20:21] VITALS: BP 157/92; PULSE 99
[2024-12-03] MEDS ORDERED: Sodium Chloride 0.9% 10 ML Syringe FLUSH PRN (20:36)
[2024-12-04] MEDS ORDERED: glipiZIDE 5 MG Tab PO ONE (18:54)
[2024-12-04] MEDS ORDERED: metFORMIN 500 MG Tab.ER PO ONE (18:55)
== END 2024-12-03 20:09 ==
LOC: LB.ED 14:40
DX: R47.01 Aphasia (principal); E11.9 Type 2 diabetes mellitus without complications; Z79.82 Long term (current) use of aspirin; Z79.84 Long term (current) use of oral hypoglycemic drugs
CPT/HCPCS: 36415; 70450; 70496; 70498; 80053; 81003; 82947; 84484; 85025; 85651; 93005; 93010; 96374; 99285; 99285-25; A0425; A0428; A9270-GY; J2405; J3490; J7040; Q9967